=== PATIENT | female | born 2000 | race Caucasian/White ===

== ENCOUNTER 2024-01-04 19:01 | Emergency (ER) | payer OTHER ==
[2024-01-04 19:54] LABS: BASOPHILS # (AUTO) 0.1 10^3/uL (0.0-0.1); BASOPHILS % (AUTO) 0.4 %; EOSINOPHILS # (AUTO) 0.3 10^3/uL (0.0-0.7); EOSINOPHILS % (AUTO) 2.2 %; HCT - HEMATOCRIT 40.2 % (37.0-47.0); HGB - HEMOGLOBIN 12.8 g/dL (12.0-16.0); LYMPHOCYTES # (AUTO) 3.9 10^3/uL (1.5-3.5); LYMPHOCYTES % (AUTO) 33.6 %; MEAN CORPUSCULAR HEMOGLOBIN 27.7 pg (27.0-31.0); MEAN CORPUSCULAR HGB CONC 31.8 g/dL (32.0-36.0); MEAN PLATELET VOLUME 9.6 fL (7.9-10.8); MONOCYTES # (AUTO) 0.8 10^3/uL (0.0-1.0); MONOCYTES % (AUTO) 7.1 %; NEUTROPHILS # (AUTO) 6.5 10^3/uL (1.5-6.6); NEUTROPHILS % (AUTO) 56.4 %; PLT - PLATELET COUNT 418 10^3/uL (130-450); RED BLOOD COUNT 4.62 10^6/uL (4.20-5.40); RED CELL DISTRIBUTION WIDTH 13.7 % (12.0-15.0); WHITE BLOOD COUNT 11.5 x10^3/uL (4.8-10.8)
--- NOTE | 2024-01-04 20:05 | ED Physician Documentation ---
PD HPI FEMALE - Stated complaint Stated Complaint: SPOTTING - Chief complaint Chief Complaint: Abd Pain - History obtained from History obtained from: Patient - Additional information Additional information: HPI from patient. Patient c/o vaginal bleeding/spotting. Four days ago, patient took home test with (+) result. This is her first and she has scheduled her initial appointment with an ob for Saturday (two days from now). Yesterday, patient began to have episodes of scant, light pink/brown vaginal discharge. This continued overnight and during the day today. This evening around 6:30 PM, there was a sudden increase in the discharge which now appeared to be blood, she describes as "dark "in color. She did not notice any clots. Since mid-today, she has had brief episodes of left pelvic cramping. Yesterday, she had an episode of pain across her lower back last about 30 minutes, but she also just finished work and thinks it might have been from activity performed during her workday. She has not had any back pain today. PD PAST MEDICAL HISTORY - Past Medical History Past Medical History: Yes Cardiovascular: None Respiratory: None Neuro: None Endocrine/Autoimmune: None GI: None EMPLOYEE RELATIONS SPECIALIST: None : None HEENT: None Psych: Depression, Anxiety Musculoskeletal: None Derm: None - Past Surgical History Past Surgical History: No - Present Medications Home Medications: Ambulatory Orders Medication Instructions Recorded Confirmed Buspirone HCl 15 mg PO DAILY 01/04/24 01/04/24 Cyanocobalamin [Vitamin B-12] 2 tab PO DAILY 01/04/24 01/04/24 Ferrous Sulfate 325 mg PO DAILY 01/04/24 01/04/24 Pnv No.95/Ferrous Fum/Folic AC 1 each PO DAILY 01/04/24 01/04/24 [ Tablet] - Allergies Allergies/Adverse Reactions: Allergies Allergy/AdvReac Type Severity Reaction Status Date / Time No Known Drug Allergies Allergy Verified 01/04/24 19:04 - Social History Does the pt smoke?: No Smoking Status: Never smoker Does the pt drink ETOH?: No Does the pt have substance abuse?: No - Immunizations Immunizations are current?: Yes - POLST Patient has POLST: No PD ED PE NORMAL - Vitals Vital signs reviewed: Yes - General General: Alert and oriented X 3, No acute distress, Well developed/nourished - Abdomen Abdomen: Soft, Non tender, Non distended - Back Back: No CVA TTP - Derm Derm: Normal color, Warm and dry Results - Vitals Vitals: Oxygen O2 Source Room air - Labs Labs: Laboratory Tests 01/04/24 01/04/24 01/04/24 19:50 19:50 19:50 WBC 11.5 H RBC 4.62 Hgb 12.8 Hct 40.2 MCV 87.0 MCH 27.7 MCHC 31.8 L RDW 13.7 Plt Count 418 MPV 9.6 Neut # (Auto) 6.5 Lymph # (Auto) 3.9 H Murray # (Auto) 0.8 Eos # (Auto) 0.3 Baso # (Auto) 0.1 Absolute Nucleated RBC 0.00 Nucleated RBC % 0.0 Sodium 135 Potassium 3.7 Chloride 104 Carbon Dioxide 25 Anion Gap 6.0 BUN 13 Creatinine 0.8 Estimated GFR (MDRD) 90 Glucose 97 Calcium 9.6 Total Bilirubin 0.3 AST 16 ALT 23 Alkaline Phosphatase 112 Total Protein 7.6 Albumin 4.3 Globulin 3.3 Albumin/Globulin Ratio 1.3 Beta HCG, Quant 32.8 Blood Type O POSITIVE - Rads (name of study) 1st trimester OB US Relevant Findings:: Prelim report reviewed, See rad report PD Medical Decision Making - ED course Complexity details: reviewed results, re-evaluated patient, considered differential, d/w patient ED course: Mild leukocytosis (11.5) on otherwise unremarkable CBC. Entirely normal complete metabolic profile. HCG quantitative is only 32.8. US without evidence of , expected given the low quantitative HCG. Differential diagnosis includes early (including potential for ectopic ), miscarriage. Results d/w patient. Advised of need to pursue follow up with char filter tank tender within next few days for reevaluation and likely retesting including repeat quantitative HCG. Return precautions reviewed. Departure - Departure Disposition: 01 Home, Self Care Clinical Impression: Vaginal bleeding in Condition: Good Instructions: ED Abdominal Pain Rule Out Ectopic, ED Miscarriage Poss Comments: Your red blood cell levels are within normal range; this would indicate there is been no significant blood loss. Your hCG level (" hormone" level) was very low; possible reasons for this are that you are in the very earliest stages of or that it is decreasing from a previously higher level; the latter would typically suggest a miscarriage. There was no evidence of on tonight's ultrasound, althou gh this would be expected with such a low hCG level. Yet another, though unlikely, possibility is a tubal or ectopic . What makes this unlikely is, again, the hCG level is typically higher before there are signs/symptoms of an ectopic . In any event, follow-up with your SR[employer] on Saturday as scheduled. Further tests will eventually eliminate the scenarios (above) that do not apply. Discharge Date/Time: 01/04/24 21:31
[2024-01-04 20:09] LABS: ALBUMIN 4.3 g/dL (3.2-5.5); ALBUMIN/GLOBULIN RATIO 1.3 (1.0-2.2); BILIRUBIN,TOTAL 0.3 mg/dL (0.2-1.0); CALCIUM 9.6 mg/dL (8.5-10.3); CREATININE 0.8 mg/dL (0.6-1.3); POTASSIUM 3.7 mmol/L (3.5-4.5); TOTAL PROTEIN 7.6 g/dL (6.4-8.9)
--- NOTE | 2024-01-04 20:59 | Ultrasound Report ---
PROCEDURE: OB 1st Trimester w/TV INDICATIONS: bleeding 5w OUTSIDE/PRIOR DATING DATA: Last menstrual period (LMP): 12/01/2023. First dating scan (date and location): Today. TECHNIQUE: Real-time scanning was performed of the fetus and maternal pelvic organs, with image documentation. Endovaginal scanning was also performed to better visualize the fetus and maternal ovaries. COMPARISON: None. FINDINGS: No intrauterine gestational sac is seen. No pole is seen. No adnexal masses seen. The endometrium measures 9 mm, with multiple debris. Suspected right ovarian corpus luteum measuring 1.1 cm. Mild fluid is also seen in the endocervix. IMPRESSION: No intrauterine gestational sac. No suspicious adnexal mass. Suspected right ovarian corpus luteum. of unknown location. Recommend follow-up imaging and clinical evaluation in 14 days or soon er Reviewed by: Franco Mi MD on 01/04/2024 8:58 PM PDT Approved by: Franco Mi MD on 01/04/2024 8:58 PM PDT Station ID: [id number]
[2024-01-04 21:38] VITALS: BP 158/98; O2SAT 98
== END 2024-01-04 21:31 | disposition home or self-care (01) ==
LOC: ED 19:01
DX: O46.91 Antepartum hemorrhage, unspecified, first trimester (principal); O99.111 Other diseases of the blood and blood-forming organs and certain disorders involving the immune mechanism complicating pregnancy, first trimester; D72.829 Elevated white blood cell count, unspecified; Z3A.01 Less than 8 weeks gestation of pregnancy
CPT/HCPCS: 36415; 80053; 84702; 85025; 86900; 86901; 99283; 99284

== ENCOUNTER 2024-01-15 14:56 | Outpatient (CLI) | payer OTHER | END 2024-01-15 14:57 | disposition home or self-care (01) | LOC: LAB 14:56 | PROVIDERS: ATTEND Obstetrics & Gynecology | DX: O26.90 Pregnancy related conditions, unspecified, unspecified trimester (principal) | CPT/HCPCS: 36415; 84702 ==